=== PATIENT | female | born 1975 ===

== ENCOUNTER 2024-01-13 07:30 | Inpatient (IN) | payer OTHER ==
[~2024-01-13] VITALS: Ht 172.7 cm; Wt 80.7 kg
[2024-01-13 08:39] LABS: PH,URINE 5.5 (5.0-8.0); URINE APPEARANCE Clear; URINE BILIRRUBIN Negative (NEGATIVE); URINE BLOOD Trace; URINE COLOR Yellow; URINE GLUCOSE Negative (NEGATIVE); URINE KETONE Negative (NEGATIVE); URINE LEUKOCYTE Trace; URINE NITRATE Negative; URINE UROBILINOGEN 0.2 E.U./dl
[2024-01-13 08:44] LABS: URINE BACTERIA 735.7 uL (0.0-1933); URINE EPITHELIAL CELLS 34.6 uL (0.0-38.8); URINE RBC 12.8 uL (0.0-20.8); URINE WBC 85.8 uL (0.0-23.2)
[2024-01-13 08:58] LABS: HEMATOCRIT 42.1 % (36.0-45.00); HEMOGLOBIN 14.6 g/dL (12.0-15.00); MEAN CELL VOLUME 75.9 fL (80.00-100.00); MEAN CORPUSCULAR HEMOGLOBIN 26.3 pg (27.00-32.0); MEAN CORPUSCULAR HGB CONC 34.7 g/dl (32.0-36.0); PLATELET COUNT 207 K/uL (150-450); RED BLOOD COUNT 5.55 M/uL (4.00-6.00); RED CELL DISTRIBUTION WIDTH 23.6 % (11.5-14.5)
[2024-01-13 09:00] LABS: URINE CAST 0.91 uL (0.0-1.40); URINE PROTEIN 100 (NEGATIVE)
[2024-01-13 09:15] LABS: INR 1.05; PARTIAL THROMBOPLASTIN TIME 29.4 SECONDS (22.0-34.0); PROTHROMBIN TIME 11.4 SECONDS (9.0-11.5)
[2024-01-13 09:35] LABS: ALBUMIN 4.2 gm/dL (3.4-5.0); BILIRUBIN TOTAL 0.41 mg/dL (0.3-1.2); CALCIUM 9.6 mg/dL (8.5-10.1); CREATININE SERUM 0.5 mg/dL (0.55-1.02); GFR 132.25; POTASSIUM 4.16 mEq/L (3.5-5.1); TOTAL PROTEIN 8.2 gm/dL (6.4-8.2); TSH 0.771 uIU/mL (0.358-3.74)
[2024-01-19] MEDS ORDERED: CEFOXITIN SODIUM 2,000 MG VIAL IV ONE (15:15)
[2024-01-19] MEDS ORDERED: SIMETHICONE 125 MG CAPSULE PO SCH (17:00)
[2024-01-19] MEDS ORDERED: RINGERS SOLUTION,LACTATED 1,000 ML IV SCH (17:15)
[2024-01-19] MEDS ORDERED: PROMETHAZINE HCL 50 MG/ML AMPUL IV SCH (18:00)
[2024-01-19] MEDS ORDERED: MORPHINE SULFATE 4 MG/ML VIAL IV ONE ×2 (18:00→18:30)
[2024-01-19] MEDS ORDERED: MEPERIDINE HCL/PF 50 MG/ML VIAL IV SCH (18:00)
[2024-01-19] MEDS ORDERED: MORPHINE SULFATE 4 MG/ML CARTRIDGE IV ONE (19:45)
[2024-01-19 20:52] LABS: HEMATOCRIT 41.8 % (36.0-45.00); HEMOGLOBIN 13.9 g/dL (12.0-15.00); MEAN CELL VOLUME 78.4 fL (80.00-100.00); MEAN CORPUSCULAR HGB CONC 33.2 g/dl (32.0-36.0); PLATELET COUNT 237 K/uL (150-450); RED BLOOD COUNT 5.33 M/uL (4.00-6.00); RED CELL DISTRIBUTION WIDTH 14.4 % (11.5-14.5)
[2024-01-20 02:28] VITALS: BP 113/80; O2SAT 95
[2024-01-20] MEDS ORDERED: ACETAMINOPHEN WITH CODEINE 1 UDTAB TABLET PO ONE (08:45)
[2024-01-20] MEDS ORDERED: NAPR500T14 PO (08:47)
[2024-01-20] MEDS ORDERED: tylenol #3 PO (08:47)
[2024-01-20 09:46] VITALS: BP 136/70; O2SAT 99
[2024-01-20] MEDS ORDERED: PROMETHAZINE HCL 25 MG/ML AMPUL IV SCH (12:00)
== END 2024-01-20 13:37 | disposition home or self-care (01) | DRG 743 ==
LOC: SURH 01-19 07:30 → O/R 01-19 10:26 → SURH 01-19 15:45
PROVIDERS: ADMIT Obstetrics & Gynecology; ATTEND Obstetrics & Gynecology
PROC: 0UT7FZZ Resection of Bilateral Fallopian Tubes, Via Natural or Artificial Opening With Percutaneous Endoscopic Assistance (ICD-10-PCS; 2024-01-19)
PROC: 0UT2FZZ Resection of Bilateral Ovaries, Via Natural or Artificial Opening With Percutaneous Endoscopic Assistance (ICD-10-PCS; 2024-01-19)
PROC: 0JQC0ZZ Repair Pelvic Region Subcutaneous Tissue and Fascia, Open Approach (ICD-10-PCS; 2024-01-19)
PROC: 0USG4ZZ Reposition Vagina, Percutaneous Endoscopic Approach (ICD-10-PCS; 2024-01-19)
PROC: 0TJB8ZZ Inspection of Bladder, Via Natural or Artificial Opening Endoscopic (ICD-10-PCS; 2024-01-19)
PROC: 0UT9FZZ Resection of Uterus, Via Natural or Artificial Opening With Percutaneous Endoscopic Assistance (ICD-10-PCS; principal; 2024-01-19 15:45)
DX: D25.1 Intramural leiomyoma of uterus (principal); Z20.822 Contact with and (suspected) exposure to COVID-19; N92.0 Excessive and frequent menstruation with regular cycle; D50.0 Iron deficiency anemia secondary to blood loss (chronic); N81.11 Cystocele, midline